=== PATIENT | male | born 1970 | race Two or more races ===

== ENCOUNTER 2022-04-19 07:57 | Emergency (ER) | payer OTHER ==
[~2022-04-19] VITALS: Ht 177.8 cm; Wt 106.6 kg
[~2022-04-19 07:57] MED LIST: IBUPROFEN800 MG PO; ORPH100T PO
== END 2022-04-19 10:15 | disposition home or self-care (01) ==
LOC: ER 07:57
DX: M54.9 Dorsalgia, unspecified (principal); K62.5 Hemorrhage of anus and rectum; K60.2 Anal fissure, unspecified